=== PATIENT | female | born 1995 | race African-American/Black ===

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

== ENCOUNTER 2017-04-15 15:25 | Emergency (ER) | payer SELFPAY ==
[~2017-04-15 15:25] MED LIST changes: +ZOFR4TAB3 SL
[2017-04-15 15:27] VITALS: BP 133/87; PULSE 84; RESP 16; TEMP 98.4; O2SAT 100
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
== END 2017-04-15 19:08 | disposition home or self-care (01) ==
LOC: NEPD 15:25
DX: T74.21XA Adult sexual abuse, confirmed, initial encounter (principal); Z87.09 Personal history of other diseases of the respiratory system
CPT/HCPCS: 99281; 99282